=== PATIENT | male | born 2000 | race Caucasian/White ===

== ENCOUNTER → 2022-01-24 | Outpatient (CLI) | payer OTHER | END | disposition home or self-care (01) | LOC: LAB 12:18 | PROVIDERS: Student in an Organized Health Care Education/Training Program; ATTEND Family Medicine | DX: Z11.1 Encounter for screening for respiratory tuberculosis (principal); Z23 Encounter for immunization; B19.10 Unspecified viral hepatitis B without hepatic coma ==